=== PATIENT | male | born 1950 | race Caucasian/White ===

== ENCOUNTER → 2018-11-09 | Outpatient (CLI) | payer MEDICARE, BC ==
--- NOTE | 2018-11-09 15:26 | RADIOLOGY REPORT (SQ) ---
EXAM DESCRIPTION: CT ABD/PELVIS WITH IV ORAL COMPLETED DATE/TIME: 11/09/2018 2:11 pm REASON FOR STUDY: DIVERTICULOSIS W/O HEM (K57.30), ABD PAIN (R10.9) K57.30 DVRTCLOS OF LG INT W/O P ERFORATION OR ABSCESS W/O BLE R10.9 UNSPECIFIED ABDOMINAL PAIN COMPARISON: 03/11/2007. TECHNIQUE: CT scan of the abdomen and pelvis performed with intravenous and oral contrast using jomar julius scanning technique with dynamic intravenous contrast injection. Images reviewed with lung, soft t issue, and bone windows. Reconstructed coronal and sagittal MPR images reviewed. Delayed images for e valuation of the urinary system also acquired. All images stored on PACS. All CT scanners at this facility use dose modulation, iterative reconstruction, and/or weight based d osing when appropriate to reduce radiation dose to as low as reasonably achievable (ALARA). [facility]: Dose Right [facility]: CareDose [facility]: Dose Right [facility]: Teradose 4D [facility]: Theralogix CONTRAST TYPE AND DOSE: contrast/concentration: Isovue 350.00 mg/ml; Total Contrast Delivered: 100.0 ml; Total Saline Delivered: 72.0 ml RENAL FUNCTION: BUN 17 creatinine 0.99. RADIATION DOSE: CT Rad equipment meets quality standard of care and radiation dose reduction techniq ues were employed. CTDIvol: 12.1 - 14.1 mGy. DLP: 1451 mGy-cm.. LIMITATIONS: None. FINDINGS: LOWER CHEST: No significant findings. No nodules or infiltrates. LIVER: Normal size. Fatty infiltration. No masses. No dilated ducts. SPLEEN: Normal size. No focal lesions. PANCREAS: No masses. No significant calcifications. No adjacent inflammation or peripancreatic fluid collections. Pancreatic duct not dilated. GALLBLADDER: Surgically absent. ADRENAL GLANDS: No significant masses or asymmetry. RIGHT KIDNEY AND URETER: Small cortical cyst. No solid masses. Small calyceal calculi. No hydroneph rosis or hydroureter. LEFT KIDNEY AND URETER: No solid masses. No significant calcification. No hydronephrosis or hydrouret er. AORTA AND VESSELS: No aneurysm. No dissection. Renal arteries, SMA, celiac without stenosis. RETROPERITONEUM: No retroperitoneal adenopathy, hemorrhage or masses. BOWEL AND PERITONEAL CAVITY: No obstruction. No visualized masses. No free fluid. Colonic diverticul a a in the descending and sigmoid colon. No inflammatory changes or thickening of bowel wall. APPENDIX: Normal. PELVIS: No significant masses. Normal bladder. No free fluid. ABDOMINAL WALL: No masses. Umbilical hernia containing fat. BONES: No significant or acute findings. Degenerative changes in the spine. Right hip prosthesis. OTHER: No other significant finding. IMPRESSION: 1. COLONIC DIVERTICULOSIS IN THE DESCENDING AND SIGMOID COLON. NO CT FINDINGS OF DIVERTICULITIS. 2. TINY NONOBSTRUCTING CALYCEAL CALCULI IN THE RIGHT KIDNEY. SMALL CORTICAL CYST IN THE RIGHT KIDNEY . 3. UMBILICAL HERNIA CONTAINING FAT. NO INVOLVEMENT OF BOWEL. 4. FATTY INFILTRATION OF THE LIVER. 5. NO OTHER SIGNIFICANT OR ACUTE FINDINGS IN THE ABDOMEN OR PELVIS. TECHNICAL DOCUMENTATION: JOB ID: [id number] Quality ID # [id number]: Final reports with documentation of one or more dose reduction techniques (e.g., Au tomated exposure control, adjustment of the mA and/or kV according to patient size, use of iterative reconstruction technique) 2010 [employer]- All Rights Reserved Reading location - IP/workstation name: [email or web address]
== END ==
LOC: RAD 13:25
PROVIDERS: ATTEND Internal Medicine Gastroenterology
DX: K57.30 Diverticulosis of large intestine without perforation or abscess without bleeding (principal); R10.9 Unspecified abdominal pain; N20.0 Calculus of kidney; K42.9 Umbilical hernia without obstruction or gangrene; K76.0 Fatty (change of) liver, not elsewhere classified
CPT/HCPCS: 74177